=== PATIENT | male | born 1940 | race Caucasian/White ===

== ENCOUNTER → 2017-11-17 12:30 | Outpatient (CLI) | payer MEDICARE, SELFPAY ==
[2017-11-17 13:23] LABS: Blood Urea Nitrogen 21 mg/dL (7-18); Estimated Glomerular Filt Rate 65 ml/min (>60); GFR (African American) 78 ML/MIN (>60)
--- NOTE | 2017-11-17 13:31 | CT_ITS ---
CT angio chest HISTORY: Chest pain ITS.REASON: CHEST PAIN ORDERING PHYSICIAN: Kale Houston MD PATIENT AGE: 77 years TECHNIQUE: Helical acquisition obtained following the bolus administration of 75 mL of Isovue 370 followed by a saline bolus. Axial, sagittal, and coronal reformatted images are generated and reviewed. COMPARISON: None FINDINGS: Extensive pulmonary emboli present within the segmental and subsegmental branches of the right lower lobe, right upper lobe, right middle lobe, left lower lobe, and left upper lobe pulmonary arteries. No evidence of saddle embolus. No emboli evident within the main right and left pulmonary arteries. No evidence of aortic aneurysm or dissection. Small right pleural effusion with mild right basilar atelectasis. Minimal atelectatic changes are present in the left lower lobe. No lobar consolidation or collapse. There are scattered small calcified and noncalcified pulmonary nodular opacities which are nonspecific. A subpleural 7 mm nodules present in the superior segment of the right lower lobe. A noncalcified 4 mm nodules present in the left upper lobe. A noncalcified 5 mm nodule present in the left lower lobe in the fissural area Upper abdominal images demonstrates a 9 mm isodensity in in the right hepatic lobe anteriorly and a 7 mm isodensity in the right hepatic lobe posterior medially. Degenerative changes are present in the thoracic spine. IMPRESSION: Extensive bilateral pulmonary emboli with small right effusion Small right effusion with right lower lobe atelectasis and small noncalcified bilateral pulmonary nodules Significant findings called to Kale Houston MD on 11/17/2017 2:55 PM.
== END ==
PROVIDERS: Family Provider Family Medicine; PCP Family Medicine; Visit Provider Family Medicine
DX: R07.9 Chest pain, unspecified (principal)
CPT/HCPCS: 36415; 71275; 82565; 84520; Q9967

== ENCOUNTER → 2017-12-04 10:37 | Outpatient (POV) | payer MEDICARE, SELFPAY | PROVIDERS: Visit Provider Nurse Practitioner Acute Care | DX: Z00.00 Encounter for general adult medical examination without abnormal findings (principal) ==

== ENCOUNTER → 2018-02-26 10:08 | Outpatient (POV) | payer MEDICARE, SELFPAY | PROVIDERS: Visit Provider Nurse Practitioner Acute Care | DX: Z00.00 Encounter for general adult medical examination without abnormal findings (principal) ==

== ENCOUNTER → 2019-11-25 09:08 | Outpatient (CLI) | payer MEDICARE, SELFPAY ==
--- NOTE | 2019-11-25 | CA_ITS ---
APPROVED REPORT Exam: Exercise Treadmill Technologist: Bernadette Momin Ht: 5 ft 8 in Wt: 203 lbs BSA: 2.06 m2 HR: 70 bpm BP: 169/97 mmHg Indications: Chest pain Medical History Medications: Lisinopril,,,,, Allopurinol,,,,, Naproxen,,,,, Zolpidem,,,,, Esomeprazole,,,,, Apixaban,,,,, Stress Test Details Test: Óscar HR Resting HR: 76 bpm Max Heart Rate (APMHR): 139 bpm Max HR Achieved: 138 bpm Target HR (85% APMHR): 118 bpm % of APMHR: 99 Recovery HR: 86 bpm BP Resting BP: 151.0/87.0 mmHg Max BP: 208.0/92.0 mmHg Recovery BP: 142.0/80.0 mmHg ECG Clinical Exercise duration: 06:29 min Highest Stage Achieved: Exercise capacity: 7.0 METs Stress ECG Conclusion Resting ECG: Sinus rhythm Óscar protocol completed. Patient exercised 6:29 Test stopped due to shortness of breath at peak exercise. Symptoms: Shortness of breath at peak exercise. Resolved in recovery. No chest pain. Arrhythmias/Ectopy: Occasional PVC ST-T Changes: Less than 1.[address] depression. Conclusion: GXT only. Hypertensive response. Occasional PVC. Less than 1.[address] depression. Average exercise capacity. Electronically signed by : Stewart Barron, 11/25/2019 19:38:06
== END ==
PROVIDERS: PCP Family Medicine; Visit Provider Family Medicine
DX: R07.2 Precordial pain (principal)
CPT/HCPCS: 93017

== ENCOUNTER → 2021-10-20 09:56 | Outpatient (CLI) | payer MEDICARE, SELFPAY ==
[2021-10-20 11:22] LABS: Alanine Aminotransferase 30 U/L (12-78); Albumin Level 3.9 g/dl (3.5-5.0); Albumin/Globulin Ratio 1.3 (1.1-1.8); Alkaline Phosphatase 71 U/L (38-126); Anion Gap 6.2 mEq/L (5-15); Aspartate Amino Transferase 44 U/L (17-59); Bilirubin,Total 0.8 mg/dl (0.2-1.3); Blood Urea Nitrogen 17 mg/dl (9-20); Calcium 9.3 mg/dl (8.4-10.2); Carbon Dioxide 32 mmol/L (22.0-30.0); Chloride 104 mmol/L (98-107); Chol/HDL Ratio 5.2 (1-3.5); Cholesterol 152 mg/dl (140-200); Estimated Glomerular Filt Rate 81 ml/min (>60); GFR (African American) 98 ML/MIN (>60); Globulin 2.9 g/dL (1.3-3.2); Glucose 96 mg/dl (74-100); HDL Cholesterol 29 mg/dl (40-60); Potassium 5.2 mmoL/L (3.5-5.1); Sodium 137 mmol/L (136-145); Total Protein,Serum 6.8 g/dl (6.3-8.2); Triglycerides 133 mg/dl (30-150); VLDL Cholesterol 27 mg/dL (0-40)
[2021-10-20 11:33] LABS: Direct LDL Cholesterol 97.53 mg/dL (100-129)
[2021-10-20 11:55] LABS: Prostate Specific Ag Screen 0.6 ng/ml (0.0-4.0)
== END ==
PROVIDERS: Visit Provider Family Medicine
DX: I10 Essential (primary) hypertension (principal); E78.5 Hyperlipidemia, unspecified; Z12.5 Encounter for screening for malignant neoplasm of prostate
CPT/HCPCS: 36415; 80053; 80061; G0103